=== PATIENT | male | born 1985 | race Caucasian/White ===

== ENCOUNTER 2017-11-07 19:19 | Emergency (ER) | payer OTHER ==
[~2017-11-07] VITALS: Ht 172.7 cm; Wt 92.6 kg
[~2017-11-07 19:19] MED LIST: BENTYL20 MG PO
[2017-11-07 20:40] VITALS: BP 119/76
== END 2017-11-07 20:41 | disposition home or self-care (01) ==
LOC: EME → EDBD 19:19 → EME 20:41
PROVIDERS: Emergency Medicine
DX: R42 Dizziness and giddiness (principal); Z87.891 Personal history of nicotine dependence; Z88.0 Allergy status to penicillin
CPT/HCPCS: 82948; 93005; 99281; 99284